=== PATIENT | female | born 1995 | race Two or more races ===

== ENCOUNTER 2024-01-26 17:45 | Emergency (ER) | payer OTHER ==
[~2024-01-26] VITALS: Ht 124.5 cm; Wt 60.9 kg
[2024-01-26 20:06] VITALS: BP 96/66; PULSE 89; RESP 1; O2SAT 97
== END 2024-01-26 21:05 | disposition left against medical advice (07) ==
LOC: ER 17:45
DX: M54.59 Other low back pain (principal); R05.9 Cough, unspecified; R51.9 Headache, unspecified; Z53.21 Procedure and treatment not carried out due to patient leaving prior to being seen by health care provider